=== PATIENT | male | born 2005 | race Caucasian/White ===

== ENCOUNTER 2025-02-12 10:34 | Outpatient (CLI) | payer OTHER, SELFPAY | END 2025-02-12 10:35 | disposition home or self-care (01) | LOC: FRMREF 10:36 | PROVIDERS: PCP Nurse Practitioner Family; Visit Provider Nurse Practitioner Family | DX: R19.7 Diarrhea, unspecified (principal); Z13.6 Encounter for screening for cardiovascular disorders | CPT/HCPCS: 80061; 82784; 86231; 86258; 86364 ==